=== PATIENT | female | born 1960 ===

== ENCOUNTER 2016-05-09 19:38 | Emergency (ER) | payer SELFPAY ==
[2016-05-09 20:16] VITALS: BP 136/86; PULSE 92; RESP 20; TEMP 98; O2SAT 99
[2016-05-09] MEDS ORDERED: Sodium Chloride 0.9% 1,000 ML IV STA (20:40)
--- NOTE | 2016-05-09 20:44 | ED PDOC ---
HPI: Headache Time Seen by Provider: 05/09/16 20:28 Chief Complaint (Nursing): Headache Chief Complaint (Provider): headache History Per: Patient, [employer] History/Exam Limitations: no limitations Onset/Duration Of Symptoms: Hrs (15) Current Symptoms Are (Timing): Still Present Severity: Moderate Pain Scale Rating Of: 10 Quality: "Pain" Associated Symptoms: Nausea, Vomiting Additional History Per: Patient Additional Complaint(s): 55 y/o female no past medical history presents with generalized headache x 15 hours. Patient states headache woke her from her sleep, has been present throughout the day and only lightens up "a little" but then becomes intense again. Associated nausea/vomiting. Patient tried Ibuprofen but states she threw it up. Denies dizziness, extremity numbness/weakness, vision changes, extremity numbness/weakness, neck pain, chest pain, shortness of breath, palpitations. - Risk Factors SAH Risk Factors: Nest Degree Relative(s) W/SAH, Polycystic Kidney Disease, Marfan's Syndrome, Stephanie-Danlos Syndrome, Neurofibromatos, Type I, Sudden Onset Of Pain , Worst Headache Of Life Past Medical History Reviewed: Historical Data, Nursing Documentation, Vital Signs Vital Signs: Last Vital Signs Temp 98.0 F 05/09/16 20:12 Pulse 92 H 05/09/16 20:12 Resp 20 05/09/16 20:12 BP 136/86 05/09/16 20:12 Pulse Ox 99 05/09/16 20:12 - Medical History PMH: No Chronic Diseases - Surgical History Surgical History: Cholecystectomy Other surgeries: splenectomy - Family History Family History: States: Unknown Family Hx - Social History Current smoker - smoking cessation education provided: No Alcohol: None Drugs: Denies - Home Medications Home Medications: Ambulatory Orders Medication Instructions Recorded Acetaminophen/Butalbital/Caf 1 tab PO Q6 PRN #12 tab 05/09/16 [Fioricet] Ondansetron [Zofran] 4 mg PO Q8H PRN #10 tab 05/09/16 - Allergies Allergies/Adverse Reactions: Allergies Allergy/AdvReac Type Severity Reaction Status Date / Time No Known Allergies Allergy Verified 05/09/16 20:12 Review of Systems ROS Statement: Except As Marked, All Systems Reviewed And Found Negative Gastrointestinal: Positive for: Nausea, Vomiting Neurological: Positive for: Headache Physical Exam - Reviewed Nursing Documentation Reviewed: Yes Vital Signs Reviewed: Yes - Physical Exam Appears: Positive for: Well, Non-toxic, No Acute Distress Head Exam: Positive for: ATRAUMATIC, NORMAL INSPECTION, NORMOCEPHALIC Skin: Positive for: Normal Color Eye Exam: Positive for: Normal appearance, EOMI, PERRL ENT: Positive for: Normal ENT Inspection Cardiovascular/Chest: Positive for: Regular Rate, Rhythm Respiratory: Positive for: Normal Breath Sounds Gastrointestinal/Abdominal: Positive for: Normal Exam Back: Positive for: Normal Inspection Extremity: Positive for: Normal ROM Neurologic/Psych: Positive for: Alert, Oriented - Laboratory Results Result Diagrams: 05/09/16 21:00 05/09/16 21:00 - ECG O2 Sat by Pulse Oximetry: 99 - Progress ED Course And Treament: labs, CT head, IV fluids, IV reglan, PO tylenol On re-eval, patient vomiting; IV zofran ordered EXAM: CT Head Without Intravenous Contrast. CLINICAL HISTORY: 55 years old, female; Pain; Headache; Headache not specified; Additional info: Headache, vomiting. Sent ed physician documentation with request TECHNIQUE: Axial computed tomography images of the head/brain without intravenous contrast. This CT exam was performed using one or more of the following dose reduction techniques: automated exposure control, adjustment of the mA and/or kV according to patient size, and/or use of iterative reconstruction technique. Coronal and sagittal reformatted images were created and reviewed. COMPARISON: No relevant prior studies available. FINDINGS: Brain: No intracranial hemorrhage. No mass. No definite edema. Ventricles: No hydrocephalus. Bones/joints: No acute fracture. Few small lucent calvarial lesions, nonspecific. Soft tissues: Unremarkable. Sinuses: No acute sinusitis. Mastoid air cells: No mastoid effusion. Orbits: Unremarkable as visualized. Nasopharynx: Mildly prominent adenoids. IMPRESSION: 1. No definite acute intracranial abnormality. Acute infarction may be CT occult within first 24 hours. If a focal deficit persists, consider followup CT or MRI for further evaluation. 2. Incidental/non-acute findings are described above. On re-eval, patient sleeping; upon awakening states she is feeling a little better. Patient evaluated by ED attending Dr. Mckinney; importance of LP procedure discussed with patient in order to rule out meningitis, subarachnoid bleed. Patient demonstrates full understanding, declines at this time as she is feeling better and needs to get home to her child. IV toradol dose given. On re-eval, patient notes greater improvement of symptoms after toradol given. Patient educated on findings, discharged with rx Fioricet, Zofran. Advised follow up PMD 2-3 days. Return to ED for worsening/concerning symptoms. Disposition - Clinical Impression Clinical Impression: Headache Counseled Patient/Family Regarding: Studies Performed, Diagnosis, Need For Followup, Rx Given - Disposition Referrals: [facility] [Outside] Disposition: Routine/Home Disposition Time: 23:15 Condition: IMPROVED Prescriptions: Acetaminophen/Butalbital/Caf [Fioricet] 1 tab PO Q6 PRN #12 tab PRN Reason: Headache Ondansetron [Zofran] 4 mg PO Q8H PRN #10 tab PRN Reason: Nausea/Vomiting Instructions: Acute Headache (ED) Print Language: MOZAMBICAN
--- NOTE | 2016-05-09 21:39 | CT ---
EXAM: CT Head Without Intravenous Contrast. CLINICAL HISTORY: 55 years old, female; Pain; Headache; Headache not specified; Additional info: Headache, vomiting. Sent ed physician documentation with request TECHNIQUE: Axial computed tomography images of the head/brain without intravenous contrast. This CT exam was performed using one or more of the following dose reduction techniques: automated exposure control, adjustment of the mA and/or kV according to patient size, and/or use of iterative reconstruction technique. Coronal and sagittal reformatted images were created and reviewed. COMPARISON: No relevant prior studies available. FINDINGS: Brain: No intracranial hemorrhage. No mass. No definite edema. Ventricles: No hydrocephalus. Bones/joints: No acute fracture. Few small lucent calvarial lesions, nonspecific. Soft tissues: Unremarkable. Sinuses: No acute sinusitis. Mastoid air cells: No mastoid effusion. Orbits: Unremarkable as visualized. Nasopharynx: Mildly prominent adenoids. IMPRESSION: 1. No definite acute intracranial abnormality. Acute infarction may be CT occult within first 24 hours. If a focal deficit persists, consider followup CT or MRI for further evaluation. 2. Incidental/non-acute findings are described above.
[2016-05-09 21:42] LABS: BASO # 0.1 K/uL (0.0-0.2); BASO % 0.3 % (0.0-2.0); EOS % 0.2 % (0.0-4.0); HEMATOCRIT 40.2 % (34.0-47.0); LYMPH # 5.1 K/uL (1.0-4.3); MEAN CELL VOLUME 90.5 fl (81.0-99.0); MEAN CORPUSCULAR HEMOGLOBIN 29.8 pg (27.0-31.0); MEAN PLATELET VOLUME 8.7 fl (7.2-11.7); MONO # 2.6 K/uL (0.0-0.8); MONO % 9.6 % (0.0-10.0); NEUT # 19.2 K/uL (1.8-7.0); NEUT % 70.9 % (50.0-75.0); NRBC % 0.1 % (0.0-0.0); RED CELL DISTRIBUTION WIDTH 13.7 % (11.5-14.5)
[2016-05-09 21:56] LABS: ALKALINE PHOSPHATASE 118 U/L (38-126); ALT/SGPT 43 U/L (9-52); AST/SGOT 29 U/L (14-36); BILIRUBIN,TOTAL 0.6 mg/dl (0.2-1.3); BLOOD UREA NITROGEN 10 mg/dl (7-17); CALCIUM 10.3 mg/dL (8.4-10.2); CARBON DIOXIDE 28 mmol/L (22-30); CHLORIDE 101 mmol/L (98-107); GFR AFRICAN-AMERICAN > 60; GLUCOSE,RANDOM 109 mg/dL (65-105); POTASSIUM 4.3 MMOL/L (3.6-5.0); SODIUM 139 mmol/l (132-148); TOTAL PROTEIN 8.6 G/DL (6.3-8.2)
== END 2016-05-09 23:26 | disposition home or self-care (01) ==
LOC: H.ER 19:38
DX: R51 Headache (principal); R11.10 Vomiting, unspecified
CPT/HCPCS: 70450; 80053; 85025; 99282; J1885; J2405; J2765; J7040